=== PATIENT | female | born 1990 | race Two or more races ===

== ENCOUNTER 2018-06-09 23:30 | Observation (INO) | payer MEDICAID | END 2018-06-10 00:53 | disposition home or self-care (01) | DRG 566 | LOC: LDRP 23:30 | PROVIDERS: ADMIT Obstetrics & Gynecology; ATTEND Obstetrics & Gynecology | DX: O26.892 Other specified pregnancy related conditions, second trimester (principal); R10.9 Unspecified abdominal pain; Z3A.26 26 weeks gestation of pregnancy | CPT/HCPCS: 59025; 76815; 81002; G0378 ==